=== PATIENT | male | born 1960 | race Caucasian/White ===

== ENCOUNTER → 2016-06-10 | Outpatient (CLI) | payer OTHER | LOC: BMCIMAGING 11:36 | PROVIDERS: ATTEND Urology | DX: Z09 Encounter for follow-up examination after completed treatment for conditions other than malignant neoplasm (principal); N20.0 Calculus of kidney ==

== ENCOUNTER 2016-07-15 10:48 | Emergency (ER) | payer OTHER ==
--- NOTE | 2016-07-15 11:57 | EDPHY ---
H & P Stated Complaint: LL pain, behind knee. HPI/ROS: CHIEF COMPLAINT: Lightheaded, any pain HISTORY OF PRESENT ILLNESS: Patient complains of lightheadedness. This started while driving Monday. Resolved and then recurred again while driving. No lightheadedness or dizziness today. Denies any spinning sensation, nausea, vomiting or diaphoresis. No chest pain of any kind at any point. No shortness of breath. No abdominal pain. No back pain. No trauma or injury to the or trunk. No predictable modifying factors other than stopping not driving. He has a 2nd complaint of left knee pain. This occurred when stepping out of his truck recently and twisting the knee. He said pain in the knee since that is moderate to severe. No radiating pain. No numbness or tingling. No other associated complaints or modifying factors. REVIEW OF SYSTEMS: Ten systems reviewed and are negative unless otherwise noted in the HPI PERTINENT MEDICAL HISTORY: Previous diagnosis of diabetes, currently not on medication EXAMINATION General Appearance: Alert, no distress Head: normocephalic, atraumatic Eyes: Pupils equal and round, no conjunctival pallor or injection. EOMs intact. No nystagmus ENT, Mouth: Mucous membranes moist. Uvula midline. No erythema edema. Neck: Normal inspection, supple, non-tender Respiratory: Lungs are clear to auscultation. No wheezing, rhonchi or crackles. Cardiovascular: Regular rate and rhythm. No murmur. No carotid bruit. Pulses intact distally symmetric Gastrointestinal: Abdomen is soft and nontender Back: non-tender, no bony abnormalities Neurological: GCS 15. A&O, nonfocal, antalgic but steady gait. No pronator drift. No dysmetria. NIHSS: 0 Skin: Warm and dry, no rash. No petechiae or purpura. No ecchymosis or edema. Extremities: Tenderness of the left knee. Range of motion is intact but painful. There is no crepitus. No instability. Neurovascular intact distal to the left knee pain. Psychiatric: Mood and affect normal DIFFERENTIAL DIAGNOSES: Including but not limited to vertigo, near-syncope, syncope, intracranial mass dehydration, electrolyte disturbance, knee sprain, and knee strain, knee fracture MDM: 11:55 a.m. Dizziness and lightheadedness. This originally started Monday. Return on Thursday. Not currently present. No chest pain. 12:40 a.m. Notified by radiologist Dr. Byrne. CT scan of the head is unremarkable for any acute findings. 1:10 p.m. Laboratory studies, EKG, chest x-ray are all negative for any acute findings. Left knee x-ray does show mild effusion but there is no bony abnormality. The lower extremity is neuro intact. We will apply an Nikita wrap to the left knee. He has crutches use at home. He did weight-bearing as tolerated on the knee and instructed to follow up with primary care physician or Orthopedics if not improved in next 2 weeks. He is discharged home stable condition with instructions to return to the emergency department for any worsening symptoms, chest pain unilateral changes. He will follow up with primary care physician to discuss further referrals. He is comfortable with this plan and discharged home stable condition. SUPERVISION: This patient was independently evaluated without direct examination by the attending physician. Case was discussed with attending physician. Case discussed with Dr. Hughes Source: Patient - Personal History Current Tetanus/Diphtheria Vaccine: Unsure Current Tetanus Diphtheria and Acellular Pertussis (TDAP): Unsure - Medical/Surgical History Hx Asthma: No Hx Chronic Respiratory Disease: No Hx Diabetes: Yes Hx Cardiac Disease: No Hx Renal Disease: No Hx Cirrhosis: No Hx Alcoholism: No Hx HIV/AIDS: No Hx Splenectomy or Spleen Trauma: No Other PMH: kidney stone, ingrown toenail, Disectomy neck area, resolved NIDDM- weight loss, AZAM-CPAP - Social History Smoking Status: Former smoker Constitutional: Initial Vital Signs Temperature (C) 97.7 F 07/15/16 10:59 Heart Rate 51 L 07/15/16 10:59 Respiratory Rate 16 07/15/16 10:59 Blood Pressure 152/80 H 07/15/16 10:59 O2 Sat (%) 93 07/15/16 10:59 O2 Delivery Mode Room Air Allergies/Adverse Reactions: No Known Allergies Allergy (Verified 07/15/16 11:04) Home Medications: Medication Instructions Recorded NK [No Known Home Meds] 07/15/16 Medical Decision Making - Diagnostics Imaging Results: Imaging Impressions Chest X-Ray 07/15/16 11:58 Impression: 1. No acute process. 2. Hypoventilation and minimal bibasilar atelectasis. Head CT 07/15/16 11:58 Impression: Normal CT scan of the head. No source for patient's symptomatology is identified. Results called and discussed with Alonso Pabon PAC on 07/15/2016 at 12:37 Knee X-Ray 07/15/16 11:59 Impression: 1. Mild osteoarthritis and trace effusion. 2. No acute fracture. - Data Points Laboratory Results: Laboratory Results 07/15/16 12:10 07/15/16 12:10 07/15/16 07/15/16 07/15/16 12:10 12:10 12:10 WBC 7.82 10^3/uL 10^3/uL (3.80-9.50) RBC 5.36 10^6/uL 10^6/uL (4.40-6.38) Hgb 16.1 g/dL g/dL (13.7-17.5) Hct 46.4 % % (40.0-51.0) MCV 86.6 fL fL (81.5-99.8) MCH 30.0 pg pg (27.9-34.1) MCHC 34.7 g/dL g/dL (32.4-36.7) RDW 12.5 % % (11.5-15.2) Plt Count 211 10^3/uL 10^3/uL (150-400) MPV 10.5 fL fL (8.7-11.7) Neut % (Auto) 60.5 % % (39.3-74.2) Lymph % (Auto) 27.5 % % (15.0-45.0) [place] % (Auto) 8.7 % % (4.5-13.0) Eos % (Auto) 2.2 % % (0.6-7.6) Baso % (Auto) 0.8 % % (0.3-1.7) Nucleat RBC Rel Count 0.0 % % (0.0-0.2) Absolute Neuts (auto) 4.74 10^3/uL 10^3/uL (1.70-6.50) Absolute Lymphs (auto) 2.15 10^3/uL 10^3/uL (1.00-3.00) Absolute Monos (auto) 0.68 10^3/uL 10^3/uL (0.30-0.80) Absolute Eos (auto) 0.17 10^3/uL 10^3/uL (0.03-0.40) Absolute Basos (auto) 0.06 10^3/uL 10^3/uL (0.02-0.10) Absolute Nucleated RBC 0.00 10^3/uL 10^3/uL (0-0.01) Immature Gran % 0.3 % % (0.0-1.1) Immature Gran # 0.02 10^3/uL 10^3/uL (0.00-0.10) PT 13.5 SEC SEC (12.0-15.0) INR 1.04 (0.83-1.16) APTT 30.9 SEC SEC (23.0-38.0) Sodium 139 mEq/L mEq/L (134-144) Potassium 4.3 mEq/L mEq/L (3.5-5.2) Chloride 103 mEq/L mEq/L (97-110) Carbon Dioxide 23 mEq/l mEq/l (22-31) Anion Gap 13 mEq/L mEq/L (8-16) BUN 16 mg/dL mg/dL (7-23) Creatinine 0.8 mg/dL mg/dL (0.7-1.3) Estimated GFR > 60 Glucose 90 mg/dL mg/dL (70-100) Calcium 9.7 mg/dL mg/dL (8.5-10.4) Total Bilirubin 0.9 mg/dL mg/dL (0.1-1.4) Conjugated Bilirubin 0.4 mg/dL mg/dL (0.0-0.5) Unconjugated Bilirubin 0.5 mg/dL mg/dL (0.0-1.1) AST 42 IU/L IU/L (17-59) ALT 66 IU/L IU/L (21-72) Alkaline Phosphatase 48 IU/L IU/L (38-126) Troponin I < 0.012 ng/mL ng/mL (0-0.034) NT-Pro-B Natriuret Pep 21 pg/mL pg/mL (0-125) Total Protein 7.8 g/dL g/dL (6.3-8.2) Albumin 4.9 g/dL g/dL (3.5-5.0) Lipase 116.0 IU/L IU/L (23-300) Departure - Departure Disposition: Home, Routine, Self-Care Clinical Impression: Light headed Left knee sprain Qualifiers: Encounter type: initial encounter Involved ligament of knee: unspecified ligament Qualified Code(s): S83.92XA - Sprain of unspecified site of left knee, initial encounter Condition: Good Instructions: Knee Sprain (ED), Near Syncope (ED), Lightheadedness (ED) Additional Instructions: Weight-bearing as tolerated on the left knee. Follow up with primary care physician to discuss further care and orthopedic referral. Also follow up with primary care physician to discuss your lightheadedness in the possibility of Cardiology referral. Return to ER for any worsening symptoms, unilateral weakness, confusion, syncope or any chest pain. Referrals: UNKNOWN,PCP NAME [Other] - As per Instructions Michael Coyne MD [[facility] [place]] - As per Instructions
--- NOTE | 2016-07-15 12:05 | CPEKG ---
Heart Rate: 53 RR Interval: 1132 P-R Interval: 204 QRSD Interval: 96 QT Interval: 420 QTC Interval: 395 P [place]: 34 QRS [place]: -6 T Wave [place]: 28 EKG Severity - NORMAL ECG - EKG Impression: SINUS RHYTHM Electronically Signed By: Eric Henderson 15-Jul-2016 13:55:08
[2016-07-15 12:21] LABS: % IMMATURE GRANULYOCYTES 0.3 % (0.0-1.1); ABSOLUTE IMMATURE GRANULOCYTES 0.02 10^3/uL (0.00-0.10); ADD DIFF? NO; ADD MORPH? NO; ADD SCAN? NO; ATYPICAL LYMPHOCYTE FLAG 0 (0-99); FRAGMENT RBC FLAG 0 (0-99); HEMATOCRIT 46.4 % (40.0-51.0); HEMOGLOBIN 16.1 g/dL (13.7-17.5); LEFT SHIFT FLG 0 (0-99); LIPEMIA HEMOLYSIS FLAG 90 (0-99); MEAN CELL HEMOGLOBIN CONCENTR. 34.7 g/dL (32.4-36.7); MEAN CELL VOLUME 86.6 fL (81.5-99.8); MEAN PLATELET VOLUME 10.5 fL (8.7-11.7); PLATELET CLUMPS FLAG 0 (0-99); PLATELET COUNT 211 10^3/uL (150-400); RED BLOOD CELL COUNT 5.36 10^6/uL (4.40-6.38); RED CELL DISTRIBUTION WIDTH 12.5 % (11.5-15.2)
[2016-07-15 12:26] LABS: INR 1.04 (0.83-1.16); PROTIME(PATIENT) 13.5 SEC (12.0-15.0)
[2016-07-15 12:27] LABS: APTT 30.9 SEC (23.0-38.0)
[2016-07-15 12:34] LABS: ALANINE AMINOTRANSFERASE 66 IU/L (21-72); ALBUMIN 4.9 g/dL (3.5-5.0); ALKALINE PHOSPHATASE 48 IU/L (38-126); ANION GAP 13 mEq/L (8-16); ASPARTATE AMINOTRANSFERASE 42 IU/L (17-59); BILIRUBIN,TOTAL 0.9 mg/dL (0.1-1.4); BILIRUBIN-CONJUGATED 0.4 mg/dL (0.0-0.5); BILIRUBIN-UNCONJUGATED 0.5 mg/dL (0.0-1.1); CALCIUM 9.7 mg/dL (8.5-10.4); CARBON DIOXIDE 23 mEq/l (22-31); CHLORIDE 103 mEq/L (97-110); CREATININE 0.8 mg/dL (0.7-1.3); GLOMERULAR FILTRATION RATE > 60; GLUCOSE 90 mg/dL (70-100); POTASSIUM 4.3 mEq/L (3.5-5.2); SODIUM 139 mEq/L (134-144); TOTAL PROTEIN 7.8 g/dL (6.3-8.2)
[2016-07-15 12:52] LABS: TROPONIN I < 0.012 ng/mL (0-0.034)
[2016-07-15] MEDS ORDERED: CYCLOBENZAPRINE 10MG PREPACK#3 BTL TAKEHOME ONE (13:38)
[2016-07-15 13:46] VITALS: BP 119/72; PULSE 59; RESP 17; TEMP 99; O2SAT 96
== END 2016-07-15 13:45 | disposition home or self-care (01) ==
DX: R42 Dizziness and giddiness (principal); S83.92XA Sprain of unspecified site of left knee, initial encounter; E11.9 Type 2 diabetes mellitus without complications; Z87.891 Personal history of nicotine dependence; X58.XXXA Exposure to other specified factors, initial encounter

== ENCOUNTER → 2016-07-20 | Outpatient (CLI) | payer OTHER ==
[~2016-07-20] MED LIST: GADOBUTROL 10 ML VIAL IVP ONE
== END ==
LOC: FIMAGING 17:52
PROVIDERS: ATTEND Internal Medicine
DX: R42 Dizziness and giddiness (principal); H93.13 Tinnitus, bilateral; H74.8X3 Other specified disorders of middle ear and mastoid, bilateral
CPT/HCPCS: A9585

== ENCOUNTER → 2017-07-17 | Outpatient (CLI) | payer OTHER | LOC: BMCIMAGING 15:38 | PROVIDERS: ATTEND Internal Medicine | DX: M79.661 Pain in right lower leg (principal) ==

== ENCOUNTER → 2018-02-19 | Outpatient (CLI) | payer OTHER | LOC: BMCIMAGING 16:19 | PROVIDERS: ATTEND Internal Medicine | DX: J98.11 Atelectasis (principal) ==